=== PATIENT | male | born 1995 | race Caucasian/White ===

== ENCOUNTER 2017-12-29 08:36 | Emergency (ER) | payer BC ==
[2017-12-29] MEDS ORDERED: Sodium Chloride 0.9% 10 ML Syringe FLUSH PRN (09:21)
--- NOTE | 2017-12-29 09:26 | EDM.PDOC ---
<Malika Hurtado - Last Filed: 12/29/17 09:19> ED HPI GENERAL MEDICAL PROBLEM - General Chief Complaint: Neurological Problem Stated Complaint: VISION DISTURBANCES Time Seen by Provider: 12/29/17 08:51 Source of Information: Reports: Patient History Limitations: Reports: No Limitations - History of Present Illness INITIAL COMMENTS - FREE TEXT/NARRATIVE: Patient is a 22 YO male who presents today due to visual disturbances. He states he woke up this morning and tried to get in the shower but his vision was blurry. He states if he closes one eye he can see okay but with both eyes open things appear blurred. He states that while he was in the shower he felt off balance like he was going to fall. Stating "he just felt weird". He denies pain in the eyes. He also reports that his body feels a little shaky. He reports drinking 3 tall beers last night and smoked marijuana. He went to bed around 11 pm feeling okay, woke up at 0100 to drink some water then went back to bed. He then woke up around 0700 feeling off. He states that he still feels drunk but doesn't believe that he is drunk. He denies headache, nausea, vomiting , fever or chills. He reports being a heavy drinker, sometimes drinking a 12 pack a day along with 1/2 bottle crown. He states he stopped drinking daily about 1.5 months ago and now maybe has 2 drinks per week. Generalized Pain Score (Numeric/FACES): 3 - Related Data Allergies Allergy/AdvReac Type Severity Reaction Status Date / Time Penicillins Allergy Cannot Verified 12/29/17 08:44 Remember Home Meds: Home Meds . [No Known Home Meds] 12/29/17 [History] Past Medical History HEENT History: Reports: Other (See Below) Other HEENT History: states has "pretty bad rotten teeth." Respiratory History: Reports: Bronchitis, Recurrent Genitourinary History: Reports: Renal Calculus Musculoskeletal History: Reports: Fracture Neurological History: Reports: Concussion, Migraines Other Dermatologic History: skin rash Social & Family History - Tobacco Use Smoking Status *Q: Current Every Day Smoker Years of Tobacco use: 8 Packs/Tins Daily: 0.3 - Caffeine Use Caffeine Use: Reports: Coffee, Energy Drinks - Alcohol Use Days Per Week of Alcohol Use: 1 Number of Drinks Per Day: 2 Total Drinks Per Week: 2 - Recreational Drug Use Recreational Drug Use: Yes Recreational Drug Type: Reports: Cocaine, Marijuana/Hashish Recreational Drug Use Frequency: Rarely ED ROS GENERAL - Review of Systems Review Of Systems: See Below Constitutional: Reports: No Symptoms HEENT: Reports: Vision Change. Denies: Eye Pain Respiratory: Reports: No Symptoms Cardiovascular: Reports: No Symptoms GI/Abdominal: Reports: No Symptoms Neurological: Reports: Gait Disturbance Psychiatric: Reports: No Symptoms ED EXAM, NEURO - Physical Exam Exam: See Below Exam Limited By: No Limitations General Appearance: Alert, WD/WN, No Apparent Distress Eye Exam: Bilateral Eye: EOMI, Nystagmus (mild nystagmus to the right bilaterally), PERRL Throat/Mouth: Normal Inspection, Normal Lips, Normal Teeth, Normal Oropharynx, Normal Voice Head Exam: Atraumatic, Normocephalic Neck: Normal Inspection, Supple, Non-Tender Respiratory/Chest: No Respiratory Distress, Lungs Clear, Normal Breath Sounds Cardiovascular: Regular Rate, Rhythm, No Murmur GI/Abdominal: Normal Bowel Sounds, Soft, Non-Tender Neurological: Alert, Normal Mood/Affect, Normal Dorsiflexion, CN II-XII Intact, Normal Plantar Flexion, No Motor/Sensory Deficits, Oriented x 3 Psychiatric: Normal Affect, Normal Mood Skin Exam: Warm, Dry, Intact, Normal Color, No Rash Course - Vital Signs Last Recorded V/S: Last Vital Signs Temp 97.8 F 12/29/17 08:40 Pulse 91 12/29/17 08:40 Resp 20 12/29/17 08:40 BP 147/84 H 12/29/17 08:40 Pulse Ox 97 12/29/17 08:40 - Orders/Labs/Meds Orders: Active Orders 24 hr Category Date Time Status Cardiac Monitoring [RC] . DIRECTED Care 12/29/17 09:21 Active Peripheral IV Care [RC] . DIRECTED Care 12/29/17 09:22 Active DRUG SCREEN, URINE [URCHEM] Stat Lab 12/29/17 11:26 Ordered Sodium Chloride 0.9% [Normal Saline] 1,000 ml Med 12/29/17 09:30 Active IV .BOLUS Sodium Chloride 0.9% [Saline Flush] Med 12/29/17 09:21 Active 10 ml FLUSH ASDIRECTED PRN Peripheral IV Insertion Adult [OM.PC] Stat Oth 12/29/17 09:21 Ordered Medication Orders Sodium Chloride (Normal Saline) 1,000 mls @ 1,000 mls/hr IV .BOLUS JAY Last Admin: 12/29/17 09:41 Dose: 1,000 mls/hr Sodium Chloride (Saline Flush) 10 ml FLUSH ASDIRECTED PRN PRN Reason: Keep Vein Open Last Admin: 12/29/17 09:41 Dose: 10 ml Labs: Laboratory Tests 12/29/17 12/29/17 12/29/17 Range/Units 09:40 09:40 11:30 WBC 5.00 (4.23-9.07) K/mm3 RBC 5.19 (4.63-6.08) M/mm3 Hgb 15.5 (13.7-17.5) gm/L Hct 45.4 (40.1-51.0) % MCV 87.5 (79.0-92.2) fl MCH 29.9 (25.7-32.2) pg MCHC 34.1 (32.2-35.5) g/dl RDW Std Deviation 40.0 (35.1-43.9) fL Plt Count 228 (163-337) K/mm3 MPV 9.7 (9.4-12.3) fl Neut % (Auto) 57.6 (34.0-67.9) % Lymph % (Auto) 31.8 (21.8-53.1) % Titus % (Auto) 8.8 (5.3-12.2) % Eos % (Auto) 1.6 (0.8-7.0) Baso % (Auto) 0.2 (0.1-1.2) % Neut # (Auto) 2.88 (1.78-5.38) K/mm3 Lymph # (Auto) 1.59 (1.32-3.57) K/mm3 Titus # (Auto) 0.44 (0.30-0.82) K/mm3 Eos # (Auto) 0.08 (0.04-0.54) K/mm3 Baso # (Auto) 0.01 (0.01-0.08) K/mm3 Sodium 141 (136-145) mEq/L Potassium 4.1 (3.5-5.1) mEq/L Chloride 105 (98-107) mEq/L Carbon Dioxide 30 (21-32) mEq/L Anion Gap 10.1 (5-15) BUN 18 (7-18) mg/dL Creatinine 1.0 (0.7-1.3) mg/dL Est Cr Clr Drug Dosing 119.64 mL/min Estimated GFR (MDRD) > 60 (>60) mL/min BUN/Creatinine Ratio 18.0 (14-18) Glucose 95 (74-106) mg/dL Calcium 9.0 (8.5-10.1) mg/dL Total Bilirubin 0.3 (0.2-1.0) mg/dL AST 13 L (15-37) U/L ALT 16 (16-63) U/L Alkaline Phosphatase 53 (46-116) U/L Total Protein 7.1 (6.4-8.2) g/dl Albumin 4.4 (3.4-5.0) g/dl Globulin 2.7 gm/dL Albumin/Globulin Ratio 1.6 (1-2) Urine Opiates Screen Negative (NEGATIVE) Ur Buprenorphine Scrn Negative (NEGATIVE) Ur Oxycodone Screen Negative (NEGATIVE) Urine Methadone Screen Negative (NEGATIVE) Ur Propoxyphene Screen Negative (NEGATIVE) Ur Barbiturates Screen Negative (NEGATIVE) Ur Tricyclics Screen Negative (NEGATIVE) Ur Phencyclidine Scrn Negative (NEGATIVE) Ur Amphetamine Screen Presumptive positive H (NEGATIVE) U Methamphetamines Scrn Negative (NEGATIVE) U Benzodiazepines Scrn Negative (NEGATIVE) U Cocaine Metab Screen Negative (NEGATIVE) U Marijuana (THC) Screen Negative (NEGATIVE) Ethyl Alcohol 0.00 (0.00) gm% Meds: Medications Generic Name Dose Route Start Last Admin Trade Name Freq PRN Reason Stop Dose Admin Sodium Chloride 1,000 mls @ 1,000 mls/hr 12/29/17 09:30 12/29/17 09:41 Normal Saline IV 1,000 mls/hr .BOLUS JAY Administration Sodium Chloride 10 ml 12/29/17 09:21 12/29/17 09:41 Saline Flush FLUSH 10 ml ASDIRECTED PRN Administration Keep Vein Open Discontinued Medications Generic Name Dose Route Start Last Admin Trade Name Freq PRN Reason Stop Dose Admin Iopamidol 50 ml 12/29/17 13:22 12/29/17 13:32 Isovue-300 (61%) IVPUSH 12/29/17 13:23 50 ml ONETIME ONE Administration Sodium Chloride 10 ml 12/29/17 13:22 12/29/17 13:32 Saline Flush FLUSH 12/29/17 13:23 10 ml ONETIME ONE Administration Departure - Departure Disposition: Home, Self-Care 01 Clinical Impression: Double vision - Discharge Information Referrals: PCP,Not In Area [Primary Care Provider] - Lisbeth Momin PA-C [Physician Senior Shipping Clerk] - 2 Days Forms: ED Department Discharge Additional Instructions: Follow up with an interpreter translator in [place]. There are a few options. [employer] ([phone], [facility] , [facility] , [facility] and Gus Rodrigez, OD at [facility] . Follow up with your doctor or you can follow up with Lisbeth Momin at our clinic. - My Orders Last 24 Hours: My Active Orders 12/29/17 09:21 Cardiac Monitoring [RC] . DIRECTED Sodium Chloride 0.9% [Saline Flush] 10 ml FLUSH ASDIRECTED PRN Peripheral IV Insertion Adult [OM.PC] Stat 12/29/17 09:22 Peripheral IV Care [RC] . DIRECTED 12/29/17 09:30 Sodium Chloride 0.9% [Normal Saline] 1,000 ml IV .BOLUS 12/29/17 11:26 DRUG SCREEN, URINE [URCHEM] Stat - Assessment/Plan Last 24 Hours: My Active Orders 12/29/17 09:21 Cardiac Monitoring [RC] . DIRECTED Sodium Chloride 0.9% [Saline Flush] 10 ml FLUSH ASDIRECTED PRN Peripheral IV Insertion Adult [OM.PC] Stat 12/29/17 09:22 Peripheral IV Care [RC] . DIRECTED 12/29/17 09:30 Sodium Chloride 0.9% [Normal Saline] 1,000 ml IV .BOLUS 12/29/17 11:26 DRUG SCREEN, URINE [URCHEM] Stat <Luis Miguel Boyle - Last Filed: 12/29/17 14:24> ED HPI GENERAL MEDICAL PROBLEM - General Source of Information: Reports: Patient History Limitations: Reports: No Limitations - History of Present Illness Onset: Sudden Duration: Hour(s): Severity: Moderate Improves with: Reports: None Worsens with: Reports: None Associated Symptoms: Reports: No Other Symptoms ED ROS GENERAL - Review of Systems Review Of Systems: See Below Constitutional: Reports: No Symptoms HEENT: Reports: Vision Change. Denies: Eye Pain Respiratory: Reports: No Symptoms Cardiovascular: Reports: No Symptoms GI/Abdominal: Reports: No Symptoms : Reports: No Symptoms Musculoskeletal: Reports: No Symptoms ED EXAM, NEURO - Physical Exam Exam: See Below Exam Limited By: No Limitations General Appearance: Alert, WD/WN, No Apparent Distress Eye Exam: Bilateral Eye: EOMI, Nystagmus, PERRL Ears: Normal External Exam Nose: Normal Inspection Throat/Mouth: Normal Inspection Head Exam: Atraumatic, Normocephalic Neck: Normal Inspection, Supple, Non-Tender Respiratory/Chest: No Respiratory Distress, Lungs Clear, Normal Breath Sounds Cardiovascular: Regular Rate, Rhythm, No Murmur GI/Abdominal: Normal Bowel Sounds, Soft, Non-Tender Course - Re-Assessments/Exams Free Text/Narrative Re-Assessment/Exam: 12/29/17 14:16 I ordered an IV NS 1L bolus and labs. His labs look good. His alcohol was 0. His urine drug screen was presumptive positive for meth. I ordered a CT of his head with and without contrast and there was nothing abnormal. He still has some double vision. I will have him follow up with an interpreter translator in [facility] and have him follow up with his doctor and possibly have an MRI done. Departure - Departure Time of Disposition: 14:20 Condition: Good
[2017-12-29] MEDS ORDERED: Sodium Chloride 0.9% 1,000 ML IV SCH (09:30)
[2017-12-29] MEDS ORDERED: Sodium Chloride 0.9% 10 ML Syringe FLUSH ONE (13:22)
[2017-12-29] MEDS ORDERED: Iopamidol 612 MG/ML 50 ML SDV IVPUSH ONE (13:22)
--- NOTE | 2017-12-29 13:47 | CT ---
Head CT (without and with intravenous contrast) Technique: Multiple axial sections through the brain were obtained. Study was obtained without and with intravenous contrast. Comparison: No prior intracranial imaging. Findings: Ventricles along with basal cisterns and sulci over the convexities are within normal limits for the patient's age. No abnormal parenchymal densities are seen. No evidence of intracranial hemorrhage. No midline shift or mass effect is seen. No abnormal areas of enhancement are seen. Bone window settings were reviewed which shows no acute calvarial abnormality. Minimal areas of mucosal thickening are seen within the paranasal sinuses which is incidental. Impression: 1. Incidental sinus findings. 2. Other portions of the head CT study performed without and with intravenous contrast appear within normal limits. Diagnostic code #2
== END 2017-12-29 14:40 | disposition home or self-care (01) ==
LOC: JD.ED 08:36
DX: H53.2 Diplopia (principal); F17.210 Nicotine dependence, cigarettes, uncomplicated; Z88.0 Allergy status to penicillin
CPT/HCPCS: 36415; 70470; 80053; 80306; 85025; 96360; 99285; G0480; J7040; J7050; Q9967; 99283